=== PATIENT | male | born 1970 | race Native Hawaiian/Other Pacific Islander ===

== ENCOUNTER 2017-06-18 17:30 | Emergency (ER) | payer OTHER ==
[~2017-06-18] VITALS: Ht 177.8 cm; Wt 81.6 kg
[2017-06-18] MEDS ORDERED: DIVA500T2 OR (18:01)
[2017-06-18] MEDS ORDERED: LIPITOR10 MG PO (18:01)
[2017-06-18] MEDS ORDERED: CLON0.5T36 PO (18:02)
[2017-06-18 18:31] LABS: PLATELET COUNT 313 K/uL (142-355)
[2017-06-18 18:55] LABS: POTASSIUM 3.6 mmol/L (3.6-5.2); SODIUM 133 mmol/L (136-145)
[2017-06-18 19:41] VITALS: BP 140/92; TEMP 98.4
== END 2017-06-18 19:55 | disposition home or self-care (01) ==
LOC: ED 17:30
PROVIDERS: Emergency Medicine
DX: K29.70 Gastritis, unspecified, without bleeding (principal); R53.83 Other fatigue
CPT/HCPCS: 80053; 81000; 82550; 84484; 85027; 93005; 99284